=== PATIENT | male | born 1950 | race Caucasian/White ===

== ENCOUNTER 2016-08-07 10:55 | Emergency (ER) | payer OTHER ==
[~2016-08-07] VITALS: Ht 182.9 cm; Wt 100.7 kg
[2016-08-07] MEDS ORDERED: MORPHINE SULF INJ 2 MG/ML SYRINGE 1ML ONE (11:03)
[2016-08-07] MEDS ORDERED: MORPHINE SULF INJ 2 MG/ML SYRINGE 1ML IV ONE (11:15)
[2016-08-07] MEDS ORDERED: SODIUM CHLORIDE 0.9% 1,000 ML IV ONE (11:30)
[2016-08-07] MEDS ORDERED: DOPamine 1600MCG/ML 250 ML IV ONE (17:30)
[2016-08-07 19:01] VITALS: BP 44/27
== END 2016-08-07 19:25 | disposition expired ==
LOC: ER 11:03
DX: R41.82 Altered mental status, unspecified (principal); G93.41 Metabolic encephalopathy; C78.00 Secondary malignant neoplasm of unspecified lung; I10 Essential (primary) hypertension; E11.9 Type 2 diabetes mellitus without complications; Z85.841 Personal history of malignant neoplasm of brain; Z85.05 Personal history of malignant neoplasm of liver
CPT/HCPCS: 93005; 96365; 99285; J2270; J7030